=== PATIENT | female | born 1960 | race Caucasian/White ===

== ENCOUNTER 2023-03-30 22:38 | Observation (INO) | payer OTHER ==
[~2023-03-30] VITALS: Wt 64.5 kg
[2023-03-31] VITALS (14 sets, daily range): BP systolic 125–153; BP diastolic 60–90
[2023-03-31 04:54] LABS: BASOPHILS ABSOLUTE AUTO 0.03 K/mm3 (0.00-0.23); BASOPHILS PERCENT AUTO 0 % (0-2); EOSINOPHILS ABSOLUTE AUTO 0.04 K/mm3 (0.00-0.68); EOSINOPHILS PERCENT AUTO 0 % (0-6); Hematocrit 35.6 % (33.0-51.0); Hemoglobin 12.3 g/dL (11.5-16.0); IMMATURE GRAN ABSOLUTE AUTO 0.03 K/mm3 (0.00-0.10); IMMATURE GRAN PERCENT AUTO 0 % (0-1); LYMPHOCYTES PERCENT AUTO 10 % (21-46); MONOCYTES ABSOLUTE AUTO 0.69 K/mm3 (0.16-1.47); MONOCYTES PERCENT AUTO 6 % (4-13); Mean Corpuscular HGB 30.7 pg (26.0-34.0); Mean Corpuscular HGB Conc 34.6 g/dL (31.5-36.5); Mean Corpuscular Volume 89 fL (80-100); Mean Platelet Volume 9.1 fL (9.1-12.4); NEUTROPHILS ABSOLUTE AUTO 9.12 K/mm3 (1.96-9.15); NEUTROPHILS PERCENT AUTO 83 % (41-73); Platelet Count 243 K/mm3 (150-400); RDW Coefficient Variation 13.1 % (11.7-14.2); RDW Standard Deviation 42.7 fL (35.1-46.3); Red Blood Cell Count 4.01 M/mm3 (3.80-5.20); White Blood Cell Count 11.01 K/mm3 (4.00-11.30)
[2023-03-31 05:22] LABS: Albumin, Blood 3.4 g/dL (3.4-5.0); Albumin/Globulin Ratio 1.3 (0.8-1.8); Bilirubin, Total 0.6 mg/dL (0.1-1.0); Bun/Creatinine Ratio 13.5 (12.0-20.0); Calcium, Blood 9.4 mg/dL (8.5-10.1); Creatinine, Blood 0.67 mg/dL (0.40-1.00); Globulin, Blood 2.7 g/dL (2.2-4.0); Potassium, Blood 3.6 mmol/L (3.5-5.5); Total Protein, Blood 6.1 g/dL (6.4-8.2)
[2023-03-31] MEDS ORDERED: ESTRIDIOL PO (07:43)
[2023-03-31] MEDS ORDERED: TRAM50 PO (07:44)
--- NOTE | 2023-03-31 07:47 | NUR ---
PT TO OR
--- NOTE | 2023-03-31 08:36 | NUR ---
03/31/23 0836 Omari Casiano GIVEN ON SURGICAL FLOOR.
--- NOTE | 2023-03-31 10:07 | NUR ---
PT ARRIVED TO 229 FROM PACU. TRANSFERRED PT FROM [facility] TO BED. VSS. PT REPORTS PAIN TOLERABLE, RATING 2/10. LAP INCISIONS WITH TISSUE ADHESIVE INTACT. UMBILICAL SITE OOZING SMALL AMOUNT SANG DRAINAGE. DENIES N/V OR SOB. SIPPING WATER. SIGNIFICANT OTHER AT BEDSIDE. CALL LIGHT IN REACH.
[2023-03-31] MEDS ORDERED: OXYC5 PO (12:37)
[2023-03-31] MEDS ORDERED: AMOCLA875 PO (12:38)
--- NOTE | 2023-03-31 12:38 | NUR ---
PT WISHES TO DC. TOLERATING PO, PAIN TOLERABLE, VOIDED. VSS. DR LUCAS NOTIFIED. ORDERS OBTAINED TO GIVE OT DOSE AUGMENTIN PRIOR TO DC.
[2023-03-31] MEDS ORDERED: VISBIOME 112.51 EACH PO (12:56)
--- NOTE | 2023-03-31 13:25 | NUR ---
DISCHARGED REVIEWED DC INSTRUCTIONS W/PT; VERBALIZED UNDERSTANDING. DC'D IV, CATHETER INTACT. TOLERATED PO, VSS, VOIDED. PT LEFT UNIT IN WC W/POSSESSIONS AND DC PAPERWORK IN HAND, ACCOMPANIED BY SIGNIFICANT OTHER.
== END 2023-03-31 13:24 | disposition home or self-care (01) ==
LOC: MEDS 22:38 → SURS 22:38
PROVIDERS: Surgery; ADMIT Internal Medicine
PROC: 0DTJ4ZZ Resection of Appendix, Percutaneous Endoscopic Approach (ICD-10-PCS; principal; 2023-03-31 08:00)
DX: K35.80 Unspecified acute appendicitis (principal)
CPT/HCPCS: 36415; 80053; 85025; 88304; 96374; 96375; 96376; A9270; G0378; J0295; J1100; J1885; J2250; J2405; J2704; J2710; J3010; J7030